=== PATIENT | female | born 1955 | race Caucasian/White ===

== ENCOUNTER → 2018-02-14 | Outpatient (CLI) | payer BC ==
[~2018-02-14] MED LIST: ASPI81TA15 PO; ATR10 PO; ESOM40CA42 PO; HCTZ25 PO; LISI-357 PO; METO-259 PO; METROPROLOL; MON10 PO; MULT-19 PO; PAN40 PO; PIR14R INH; POTT20 PO
--- NOTE | 2018-02-14 14:17 | RADIOLOGY IMAGING REPORT ---
FACILITY: [facility] PATIENT NAME: Kami Crwes : 1955 MR: [id number] V: [id number] EXAM DATE: ORDERING PHYSICIAN: CLARITZA ANGELES TECHNOLOGIST: Location: [facility] Patient: Kami Crews : 1955 Visit/Account:[id number] Date of Sevice: 02/14/2018 DEXA Scan Clinical history: Screening. Comparison: DEXA scan from -14. LUMBAR SPINE: The bone mineral density (BMD) measured from L1-L4 correlates with a Z-score of 0.9 and a T-score of 0.3 which is Normal as defined by the World Health Organization. The corresponding risk of fracture in the lumbar spine is Not increased compared with a young adult reference population. This value angelo s increase by 1.4 % since the prior study. More than 5% change is considered significant. HIP: Bone mineral density (BMD) measured in the LEFT total hip region correlates with a Z-score 0.9 and a T-score of 0.3 which is normal as defined by the World Health Organization. The corresponding risk of fracture in the hip is Not i ncreased compared to a young adult reference population. This value has decreased by 2.8 % since the prior study. More than 5% change is considered significant. T score left femoral neck -0.6 Bone mineral density (BMD) measured in the Femoral Neck region measures 0.954 g/cm?. IMPRESSION: 1. Lumbar spine: Normal. There has been 1.4% increase in the bone mineral density since the previou s exam. 2. Left Total Hip: Normal. There has been 2.8% decrease in the bone mineral density since the previ ous exam. 3. Femoral Neck: Bone Mineral Density is 0.954 g/cm? The next DEXA scan of this patient should include the following sites: L1-L4 and the left hip. FRAX? WHO Fracture Risk Assessment Tool link: <http://www.shef.ac.uk/FRAX/tool.jsp?locationValue=9> PLEASE NOTE: 1) The World Health Organization defines low BMD as follows: T-score Normal > -1 Osteopenia < -1 and > -2.5 Osteoporosis < -2.5 without fractures Established osteoporosis < -2.5 with fractures 2) In general, you may wish to consider: Diagnosis Treatment Follow-up DEXA Normal BMD Prevention 2-3 years Osteopenia Prevention/therapy 1-2 years Osteoporosis Therapy Yearly 3) Fracture risk estimated from the T-score is more accurate for vertebral fractures (often spontane ous) than for hip fractures. Report Dictated By: Laura Wright MD at 02/14/2018 2:12 PM Report E-Signed By: Laura Wright MD at 02/14/2018 2:14 PM WSN:[email or web address]
--- NOTE | 2018-02-14 14:43 | RADIOLOGY IMAGING REPORT ---
FACILITY: [facility] - [place], [place] PATIENT NAME: JIMBO ARVIZU : [id number] MR: [id number] V: [id number] EXAM DATE: [id number] ORDERING PHYSICIAN: CLARITZA ANGELES TECHNOLOGIST: Jaida iDaz PROCEDURE:BILATERAL DIGITAL SCREENING MAMMOGRAM WITH CAD ASSISTED INTERPRETATION & 3D TOMOSYNTHESIS COMPARISON:Prior mammograms 10/21/13. INDICATIONS:SCREENING FINDINGS: Small to moderate amount of fibroglandular tissue is seen throughout the breasts. The parenchymal pattern has remained stable allowing for difference in mammographic technique & patient positioning. There is no evidence of malignant appearing mass, malignant appearing calcifications or other secondary sign of malignancy in either breast. DIAGNOSTIC CATEGORY 1--NEGATIVE. RECOMMENDATIONS: ROUTINE MAMMOGRAM AND CLINICAL EVALUATION. IMPRESSION: BIRADS 1: Negative. No significant abnormality is seen. Dictated by: Laura Wright M.D. on 02/14/2018 at 14:37 Transcribed by: MISTI on 02/14/2018 at 14:40 Approved by: Laura Wright M.D. on 02/14/2018 at 14:42 [facility]
== END ==
LOC: MAMO 00:51
PROVIDERS: ATTEND Nurse Practitioner Family
DX: Z13.820 Encounter for screening for osteoporosis (principal); Z12.31 Encounter for screening mammogram for malignant neoplasm of breast
CPT/HCPCS: 77063; 77067; 77080

== ENCOUNTER 2018-03-05 00:38 | Day surgery (SDC) | payer BC ==
[~2018-03-05] VITALS: Ht 157.5 cm; Wt 81.6 kg
[2018-03-05] VITALS (7 sets, daily range): BP systolic 114–139; BP diastolic 76–92
[~2018-03-05 00:38] MED LIST changes: +LEVA15HF IH
[2018-03-05] MEDS ORDERED: PROPOFOL EMUL(*) 10MG/ML 20 ML 20 ML ONE (07:10)
[2018-03-05] MEDS ORDERED: LIDOCAINE/SOD BICARB 8.4% SYR ID ONE (09:35)
[2018-03-05] MEDS ORDERED: NORMOSOL R SOLN(*) 1000 ML BAG 1,000 ML IV PRN (09:35)
--- NOTE | 2018-03-05 12:15 | Short(Outpt) Discharge Summary ---
Discharge Summary Reason for Hosp/Final Diag: (1) Colon cancer screening Status: Chronic Hospital Course & Plan: Colonoscopy with polypectomy x1 completed without problems. Departure Discharge to: Home, Self Care Discharge Instructions Home Meds Reported Medications Levalbuterol Tartrate (XOPENEX HFA) 15 Gm Hfa.aer.ad, 1-2 PUFF IH PRN 02/19/18 Multivits-Min/Iron/FA/Lutein (Centrum Silver Women Tablet) 1 Each Tablet, 1 TAB PO QDAY 02/12/18 Esomeprazole Mag Trihydrate (Nexium) 40 Mg Capsule.dr, 40 MG PO QDAY, 0 Refills 03/23/12 Metoprolol Succinate (Metoprolol Succinate) 50 Mg Tab.sr.24h, 25 MG PO QHS 03/23/12 Atorvastatin (Lipitor) 10 Mg Tab, 20 MG PO QHS, 0 Refills 03/21/12 Montelukast Sodium (Singulair) 10 Mg Tab, 10 MG PO QHS, 0 Refills 03/21/12 Diet: Regular Activity: As Tolerated Special Instructions: Your colonoscopy was completed without problems and your prep was excellent (Good Job!!). I removed a small polyp from your colon and it was sent to pathology. My office will call you in the next week or so to let you what the polyp is and when your next colonoscopy should be (either 5 or 10 years) depending on the pathology results. DARON WOOTEN MD Mar 05, 2018 12:15
== END 2018-03-05 13:20 | disposition home or self-care (01) ==
LOC: OR 00:38
PROVIDERS: ATTEND Surgery
DX: Z12.11 Encounter for screening for malignant neoplasm of colon (principal); D12.0 Benign neoplasm of cecum; G47.33 Obstructive sleep apnea (adult) (pediatric); I10 Essential (primary) hypertension; E78.5 Hyperlipidemia, unspecified; K21.9 Gastro-esophageal reflux disease without esophagitis; J45.909 Unspecified asthma, uncomplicated; E11.9 Type 2 diabetes mellitus without complications; E66.9 Obesity, unspecified; Z86.73 Personal history of transient ischemic attack (TIA), and cerebral infarction without residual deficits; Z68.32 Body mass index [BMI] 32.0-32.9, adult; Z99.81 Dependence on supplemental oxygen
CPT/HCPCS: 00811; 36416; 45385; 82948; 88305; J2704